=== PATIENT | male | born 1940 | race Caucasian/White ===

== ENCOUNTER 2018-10-31 14:00 | Inpatient (IN) ==
--- NOTE | 2018-10-31 14:19 | XRay Report ---
XR chest 1V portable CLINICAL HISTORY: Chest Pain dyspnea COMPARISON STUDY: No previous studies for comparison. FINDINGS: The bones soft tissues and hemidiaphragms are normal. The cardiomediastinal silhouette is n ormal. The lungs are clear. The pulmonary vasculature is normal. Healing and/or healed fractures of t he right seventh eighth ninth and 10th ribs. No evidence of pneumothorax. Lungs are clear. IMPRESSION: No acute process. Several old right-sided rib fractures. The above report was generated using voice recognition software. It may contain grammatical, syntax or spelling errors. Electronically signed by: Leo Laws M.D. 10/31/2018 2:18 PM
[2018-10-31 14:32] LABS: Basophils # (auto) 0.03 K/uL (0-0.2); Basophils % (auto) 0.2 %; Eosinophils # (auto) 0.15 K/uL (0-0.5); Eosinophils % (auto) 1.2 %; Hematocrit (blood only) 43.1 % (42-52); Hemoglobin 15.3 g/dL (14.0-18.0); Immature Granulocytes # (auto) 0.05 K/uL (0.00-0.02); Immature Granulocytes % (auto) 0.4 %; Lymphocytes # (auto) 1.43 K/uL (1.2-3.4); Lymphocytes % (auto) 11.6 %; Mean Corpuscular Hgb Conc 35.5 g/dL (32-36); Mean Corpuscular Volume 83.7 fL (80-100); Mean Platelet Volume 9.5 fL (7.4-10.4); Monocytes # (auto) 0.74 K/uL (0.11-0.59); Neutrophils # (auto) 9.89 K/uL (1.4-6.5); Neutrophils % (auto) 80.6 %; Platelet Count 199 K/uL (130-400); RDW Coefficient of Variation 12.3 % (11.5-14.5); RDW Standard Deviation 37.4 fL (36.4-46.3); Red Blood Count 5.15 M/uL (4.7-6.1); White Blood Count 12.29 K/uL (4.8-10.8)
[2018-10-31 14:46] LABS: Partial Thromboplastin Ratio 0.8; Partial Thromboplastin Time 21.8 Seconds (21.0-31.0)
[2018-10-31 15:00] LABS: Alanine Aminotransferase 30 U/L (12-78); Albumin Globulin Ratio 1.3 (0.9-2); Albumin Level 4.4 gm/dl (3.4-5.0); Aspartate Aminotransferase 18 U/L (15-37); BUN Creatinine Ratio 14.5 (10-20); Bilirubin,Total 0.5 mg/dl (0.2-1); Blood Urea Nitrogen 21 mg/dl (7-18); Calcium 9.2 mg/dl (8.5-10.1); Carbon Dioxide 25 mmol/L (21-32); Chloride 106 mmol/L (98-107); Creatinine Clr Calc Pharmacy 45.7 ml/min; Est GFR (African American) 53.8; Est GFR (Non-African American) 46.4; Globulin 3.4 gm/dl (2.5-4.0); Glucose 243 mg/dl (70-99); Potassium 5.1 mmol/L (3.5-5.1); Sodium 138 mmol/L (136-145); Total Protein 7.8 gm/dl (6.4-8.2)
[2018-10-31 15:03] LABS: Alkaline Phosphatase 87 U/L (45-117); Troponin I < 0.015 ng/ml (0-0.045)
[2018-10-31] MEDS ORDERED: SODIUM CHLORIDE 0.9% 1000ML 1,000 ML IV ONE (15:23)
[2018-10-31] MEDS ORDERED: SODIUM CHLORIDE 0.9% 500 ML IV ONE (18:45)
[2018-10-31] MEDS ORDERED: Heparin IV Standard *NO* Bolus IV STA (18:46)
[2018-10-31] MEDS ORDERED: Heparin Adult STANDARD Wt-Based Dextrose 5% 25,000 units/500 mL IV SCH (19:00)
[2018-10-31] MEDS ORDERED: ACETAMINOPHEN 325 MG TAB PO PRN (20:05)
--- NOTE | 2018-10-31 20:30 | History & Physical Report ---
Date of Service October 31, 2018 Assessment & Plan (1) Non-STEMI (non-ST elevated myocardial infarction): Presented with chest pain 4 episodes in last 2 months with history of NE and cardiac stent placement 14 years ago EKG unremarkable but troponin was elevated to 1.9 Likely has non-ST elevation NE Will get serial cardiac enzymes and EKG Heparin was restarted and continued his aspirin and statin Appreciate cardiology input Possible cardiac cath in the morning Present on Admission?: Yes (2) Chest pain: Has had 4 episodes in last 2 months Most recent all stayed longer Management as above Present on Admission?: Yes (3) Diabetes: Has type 2 diabetes on oral medications including what metformin We will hold his oral medications Place him on sliding scale coverage Check hemoglobin A1c (4) Hypertension: Seems to be controlled Continue current medications (5) CHRISTIANO (acute kidney injury): Creatinine was read to be high at 1.45 with increasing BUN of 21 Likely has CHRISTIANO secondary to dehydration We will give him cautious amount of intravenous fluid Monitor PRP DVT prophylaxis Intravenous heparin CODE STATUS Full code History of Present Illness Chief Complaint: Chest pain while playing golf today Primary Care Provider: Everton Trinidad MD He is a 78 years old male with significant past medical history of CAD status post NE and stent placement about 14 years ago in [facility], diabetes type 2, hypertension and hyperlipidemia has been complaining of occasional chest pain for the last 2 months. The pain he complains comes with exertion and lasts for few minutes or so and relieved with sublingual nitro he denies any other symptoms associated with it. He has had 4 episode of chest pain in last 2 months and the latest one was while playing golf today and that lasted for longer than other time. He did complain to have some regurgitation with the pain but did not have any shortness of breath and/or palpitation associated with it. No dizziness and the pain did not radiate to the neck and/or to the left upper extremity. In the ER he did not have any more pain and initial EKG and troponin are unremarkable. His repeat troponin came back positive at 1.9 and from that point he was seen by the snow fence erector and is advised for admission for possible cardiac cath tomorrow. He was started with intravenous heparin and continued his aspirin and statin. Allergies Allergy/AdvReac Type Severity Reaction Status Date / Time No Known Allergies Allergy Unverified 10/31/18 15:16 Home Medications Home Medications Medication Instructions Recorded Confirmed Type aspirin [Aspirin Low Dose] 81 mg PO DAILY 10/31/18 10/31/18 History atorvastatin 80 mg PO DAILY 10/31/18 10/31/18 History cyanocobalamin (vitamin B-12) 500 mcg PO DAILY 10/31/18 10/31/18 History docusate sodium 100 mg PO BID 10/31/18 10/31/18 History ezetimibe 10 mg PO DAILY 10/31/18 10/31/18 History glimepiride 2 mg PO QDL 10/31/18 10/31/18 History glimepiride 4 mg PO BIDM 10/31/18 10/31/18 History linagliptin [Tradjenta] 5 mg PO DAILY 10/31/18 10/31/18 History lisinopril 2.5 mg PO DAILY 10/31/18 10/31/18 History metformin 100 mg PO BID 10/31/18 10/31/18 History nebivolol [Bystolic] 2.5 mg PO DAILY 10/31/18 10/31/18 History Past Med/Surg History Medical History Diabetes Hypertension Surgical History H/O heart artery stent Family History Other Family history non-contributory Social History Feels Safe at Home: Yes Smoking Status: Unknown if ever smoked Review of Systems Review of Systems: All systems reviewed & are unremarkable except as noted in HPI & below Respiratory: no cough and no dyspnea Cardiovascular: no chest pain Physical Exam Physical Exam: No apparent distress at rest Constitutional: well developed and well nourished; no acute distress and not ill appearing Eyes: PERRL, conjunctivae normal, anicteric sclerae ENMT: external ear and nose normal, oropharynx normal Neck: trachea midline, no thyromegaly Respiratory: normal respiratory effort; no respiratory distress Auscultation: lungs clear to auscultation bilaterally Cardiovascular: Rate/Rhythm: regular rate and regular rhythm Heart Sounds: no murmur Gastrointestinal (Abdomen): Inspection/Auscultation: abdomen normal to inspection Percussion/Palpation: abdomen soft; abdomen nontender Musculoskeletal: No acute arthritis in any joints Neurologic: patellar DTR's 2+ bilat, sensation intact Psychiatric: A+Ox3, euthymic affect Lymphatic: no cervical or axillary lymphadenopathy Results & Data Vital Signs (Past 12 Hours) Vital Signs Temp Pulse Pulse Resp BP BP Pulse Ox 10/31/18 18:03 67 18 105/98 98 10/31/18 15:55 73 18 119/61 95 10/31/18 14:12 36.7 C 67 67 18 120/70 100 Laboratory Results Short CBC 10/31/18 Range/Units 14:25 WBC 12.29 H (4.8-10.8) K/uL Hgb 15.3 (14.0-18.0) g/dL Hct 43.1 (42-52) % Plt Count 199 (130-400) K/uL BMP 10/31/18 14:25 Sodium 138 Potassium 5.1 Chloride 106 Carbon Dioxide 25 BUN 21 H Creatinine 1.45 H Glucose 243 H Calcium 9.2 Cardiac Enzymes 10/31/18 10/31/18 Range/Units 14:25 17:35 Troponin I < 0.015 1.960 H* (0-0.045) ng/ml Liver Function 10/31/18 Range/Units 14:25 Total Bilirubin 0.5 (0.2-1) mg/dl AST 18 (15-37) U/L ALT 30 (12-78) U/L Alkaline Phosphatase 87 (45-117) U/L Albumin 4.4 (3.4-5.0) gm/dl Medications Administered Current Inpatient Medications Acetaminophen (Tylenol) 650 mg PO Q4H PRN PRN Reason: Pain or Fever Stop: 11/30/18 20:04 Heparin Sodium/Dextrose (Heparin Sodium/Dextrose) 25,000 units in 500 mls @ 27 mls/hr IV .[id number] [facility]; Protocol Stop: 11/30/18 18:59 Last Admin: 10/31/18 19:03 Dose: 1,350 units/hr, 27 mls/hr Documented by: Sodium Chloride (Nss) 500 mls @ 125 mls/hr IV .Q4H [facility] Stop: 11/01/18 08:14 Code Status & VTE Plan Code Status Full code VTE Prophylaxis Plan VTE Prophylaxis will be ordered: Yes (1) Chest pain Chest pain type: unspecified Qualified Code(s): R07.9 - Chest pain, unspecified
[2018-10-31] MEDS ORDERED: DEXTROSE 50% 50 ML SYRINGE IV PRN (21:45)
[2018-10-31] MEDS ORDERED: CARBOHYDRATES FOR HYPOGLYCEMIA PO PRN (21:45)
[2018-10-31] MEDS ORDERED: GLUCAGON FOR INJ 1 MG VIAL IM PRN (21:45)
[2018-10-31] MEDS ORDERED: GLUCOSE 10 TABS/TUBE PO PRN (21:45)
[2018-10-31] MEDS ORDERED: GLUCOSE 40% GEL 15 GM TUBE PO PRN (21:45)
[2018-10-31] MEDS: SODIUM CHLORIDE 0.9% 500 ML IV SCH (22:15)
--- NOTE | 2018-10-31 22:23 | Emergency Department Note ---
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 The patient reports he was playing golf when he experienced chest pain and numbness in his arms. He states he thought it was the heat and sat down for 20 minutes. The patient notes he has taken nitro a few times before. He reports he has history of a LAD stent that was placed 14 years ago. The patient rates his pain as 4 at its worst. He denies smoking or drinking. The patient reports he takes medications for hypertension, diabetes, and cholesterol. He notes he has not recently had his heart checked. The patient was given 4 baby aspirin and nitro prior to arrival and his pain has not changed. Home Medications Home Medications Medication Instructions Recorded Confirmed Type aspirin [Aspirin Low Dose] 81 mg PO DAILY 10/31/18 10/31/18 History atorvastatin 80 mg PO DAILY 10/31/18 10/31/18 History cyanocobalamin (vitamin B-12) 500 mcg PO DAILY 10/31/18 10/31/18 History docusate sodium 100 mg PO BID 10/31/18 10/31/18 History ezetimibe 10 mg PO DAILY 10/31/18 10/31/18 History glimepiride 2 mg PO QDL 10/31/18 10/31/18 History glimepiride 4 mg PO BIDM 10/31/18 10/31/18 History linagliptin [Tradjenta] 5 mg PO DAILY 10/31/18 10/31/18 History lisinopril 2.5 mg PO DAILY 10/31/18 10/31/18 History metformin 100 mg PO BID 10/31/18 10/31/18 History nebivolol [Bystolic] 2.5 mg PO DAILY 10/31/18 10/31/18 History Allergies Allergy/AdvReac Type Severity Reaction Status Date / Time No Known Allergies Allergy Unverified 10/31/18 15:16 Past Med/Surg History Medical History Diabetes Hypertension Surgical History H/O heart artery stent Family History Other Family history non-contributory Social History Preferred Language: Solomon Islander Communication Ability: Effective 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 and A total of 10 systems reviewed and were otherwise negative Physical Exam Vital Signs Vital Signs - 24 hr 10/31/18 14:12 10/31/18 15:55 10/31/18 18:03 Temperature 36.7 C Temperature Source Oral Sepsis Recent Fever Within 48 Hours No Sepsis Action Taken by Nursing No Action Required Pulse Rate 67 Pulse Rate [Apical] 67 73 67 Respiratory Rate 18 18 18 Blood Pressure 120/70 Blood Pressure [Left Arm] 119/61 105/98 Blood Pressure Mean 86 Blood Pressure Mean [Left Arm] 80 100 Pulse Oximetry 100 95 98 Oxygen Delivery Method Room Air Room Air Room Air 10/31/18 20:00 Temperature Temperature Source Oral Sepsis Recent Fever Within 48 Hours Sepsis Action Taken by Nursing Pulse Rate Pulse Rate [Apical] 58 L Respiratory Rate 18 Blood Pressure Blood Pressure [Left Arm] 137/84 Blood Pressure Mean Blood Pressure Mean [Left Arm] 101 Pulse Oximetry 98 Oxygen Delivery Method Room Air GENERAL: Patient is awake, alert, and in no acute distress.Patient is resting comfortably and showing no signs of anxiety EYES: The conjunctivae are clear. The pupils are round and reactive. EARS, NOSE, MOUTH AND THROAT: The nose is without any evidence of any deformity. Mucous membranes are moist.Tongue is midline NECK: The neck is nontender and supple. RESPIRATORY: Normal respiratory effort is noted. There is no evidence of wheezing rhonchi or rales to auscultation. CARDIOVASCULAR: Regular rate and rhythm noted. There no murmurs rubs or gallops normal S1 normal S2 GASTROINTESTINAL: The abdomen is soft. Bowel sounds are present in all quad rants. Abdomen is nontender. MUSCULOSKELETAL/EXTREMITIES: There is no evidence of gross deformity. Full range of motion is noted in the hips and shoulders. SKIN: There is no obvious evidence of any rash. There are no petechiae, pallor or cyanosis noted. NEUROLOGIC: Patient is awake alert and oriented x3. Course 1407: The patient was evaluated in room C3. A complete history and physical exam was performed. 1604: I checked on the patient. 1833: I checked on the patient. 1850: I reviewed the patient's case with Dr. Hill, Interventional Cardiology. He recommends admitting the patient and he will evaluate him for catheter. 1920: I [facility] the [facility] Administered Medications Aspirin (Ecotrin Ectab) 81 mg PO DAILY [facility] Stop: 12/01/18 08:59 Last Admin: 11/02/18 07:55 Dose: 81 mg Documented by: [id number] Admin: 11/01/18 07:22 Dose: 81 mg Documented by: [id number] Atorvastatin Calcium (Lipitor) 80 mg PO DAILY [facility] Stop: 12/01/18 08:59 Last Admin: 11/02/18 07:56 Dose: 80 mg Documented by: [id number] Admin: 11/01/18 07:22 Dose: 80 mg Documented by: [id number] Cyanocobalamin (Vitamin B-12) 500 mcg PO DAILY [facility] Stop: 12/01/18 08:59 Last Admin: 11/02/18 07:56 Dose: 500 mcg Documented by: [id number] Admin: 11/01/18 07:22 Dose: 500 mcg Documented by: [id number] Docusate Sodium (Colace) 100 mg PO BID [facility] Stop: 11/30/18 21:24 Last Admin: 11/02/18 08:46 Dose: 100 mg Documented by: [id number] Admin: 11/01/18 20:40 Dose: 100 mg Documented by: [id number] Admin: 11/01/18 07:22 Dose: 100 mg Documented by: [id number] Admin: 10/31/18 22:28 Dose: 100 mg Documented by: [id number] Ezetimibe (Zetia) 10 mg PO DAILY [facility] Stop: 12/01/18 08:59 Last Admin: 11/02/18 07:56 Dose: 10 mg Documented by: [id number] Admin: 11/01/18 07:22 Dose: 10 mg Documented by: [id number] Insulin Aspart (Novolog Flexpen) 0 units SC ACHS [facility] Stop: 11/30/18 20:59 Last Admin: 11/02/18 08:49 Dose: 2 units Documented by: [id number] Cosigned by: [id number] Admin: 11/01/18 20:41 Dose: 4 units Documented by: [id number] Cosigned by: [id number] Admin: 11/01/18 16:57 Dose: 5 units Documented by: [id number] Cosigned by: [id number] Admin: 11/01/18 12:33 Dose: 4 units Documented by: [id number] Cosigned by: [id number] Admin: 11/01/18 07:30 Dose: Not Given Documented by: [id number] Cosigned by: [id number] Admin: 10/31/18 22:30 Dose: 7 units Documented by: [id number] Cosigned by: [id number] Lisinopril (Zestril) 2.5 mg PO DAILY [facility] Stop: 12/01/18 08:59 Last Admin: 11/02/18 07:56 Dose: 2.5 mg Documented by: [id number] Admin: 11/01/18 07:22 Dose: 2.5 mg Documented by: [id number] Nebivolol (Bystolic) 2.5 mg PO DAILY [facility] Stop: 12/01/18 08:59 Last Admin: 11/02/18 07:56 Dose: 2.5 mg Documented by: [id number] Admin: 11/01/18 07:22 Dose: 2.5 mg Documented by: [id number] Ticagrelor (Brilinta) 90 mg PO BID [facility] Stop: 12/01/18 20:59 Last Admin: 11/02/18 07:56 Dose: 90 mg Documented by: [id number] Admin: 11/01/18 20:40 Dose: 90 mg Documented by: [id number] Discontinued Medications Fentanyl Citrate (Fentanyl Citrate) Confirm Administered Dose 100 mcg .ROUTE .STK-MED ONE Stop: 11/01/18 09:29 Last Increment: 11/01/18 10:17 Dose: 25 mcg Documented by: [id number] Heparin Sodium (Porcine) (Heparin Iv Bolus (Crib Tender Use Only)) Confirm Administered Dose 10,000 units .ROUTE .STK-MED ONE Stop: 11/01/18 09:29 Last Admin: 11/01/18 10:18 Dose: Not Given Documented by: [id number] Heparin Sodium/Dextrose () 1 ea IV NOW STA Stop: 10/31/18 18:47 Last Admin: 10/31/18 19:05 Dose: 1 ea Documented by: [id number] Heparin Sodium/Sodium Chloride (Heparin/Nss 1000 Unit/500ml Flush Bag) Confirm Administered Dose 3,000 units IV .STK-MED ONE Stop: 11/01/18 09:29 Last Admin: 11/01/18 10:18 Dose: 3,000 units Documented by: [id number] Sodium Chloride (Nss 1000ml) 1,000 mls @ 999 mls/hr IV .Q1H1M ONE Stop: 10/31/18 16:23 Last Infusion: 10/31/18 16:52 Dose: 0 mls/hr Documented by: [id number] Admin: 10/31/18 15:58 Dose: 999 mls/hr Documented by: [id number] Sodium Chloride (Nss) 500 mls @ 999 mls/hr IV .Q31M ONE Stop: 10/31/18 19:15 Last Infusion: 10/31/18 19:39 Dose: 0 mls/hr Documented by: [id number] Admin: 10/31/18 19:05 Dose: 999 mls/hr Documented by: [id number] Heparin Sodium/Dextrose (Heparin Sodium/Dextrose) 25,000 units in 500 mls @ 0 mls/hr IV .Q0M [facility]; Protocol Stop: 11/30/18 18:59 Last Titration: 11/01/18 11:40 Dose: 0 units/hr, 0 mls/hr Documented by: [id number] Cosigned by: [id number] Titration: 11/01/18 09:19 Dose: 0 units/hr, 0 mls/hr Documented by: [id number] Cosigned by: [id number] Titration: 11/01/18 07:07 Dose: 1,350 units/hr, 27 mls/hr Documented by: [id number] Cosigned by: [id number] Titration: 11/01/18 02:04 Dose: 1,350 units/hr, 27 mls/hr Documented by: [id number] Cosigned by: [id number] Titration: 10/31/18 23:07 Dose: 1,350 units/hr, 27 mls/hr Documented by: [id number] Cosigned by: [id number] Admin: 10/31/18 19:03 Dose: 1,350 units/hr, 27 mls/hr Documented by: [id number] Cosigned by: [id number] Sodium Chloride (Nss) 500 mls @ 125 mls/hr IV .Q4H [facility] Stop: 11/01/18 08:14 Last Infusion: 11/01/18 09:20 Dose: 0 mls/hr Documented by: [id number] Admin: 11/01/18 05:01 Dose: 125 mls/hr Documented by: [id number] Infusion: 11/01/18 05:01 Dose: 125 mls/hr Documented by: [id number] Admin: 11/01/18 02:03 Dose: 125 mls/hr Documented by: [id number] Infusion: 11/01/18 02:03 Dose: 125 mls/hr Documented by: [id number] Admin: 10/31/18 22:15 Dose: 125 mls/hr Documented by: [id number] Sodium Chloride (Nss 1000ml) 1,000 mls @ 100 mls/hr IV .Q10H [facility] Stop: 11/01/18 16:44 Last Infusion: 11/01/18 17:03 Dose: 0 mls/hr Documented by: [id number] Admin: 11/01/18 12:32 Dose: 100 mls/hr Documented by: [id number] Midazolam HCl (Versed) Confirm Administered Dose 2 mg .ROUTE .STK-MED ONE Stop: 11/01/18 09:29 Last Increment: 11/01/18 10:18 Dose: 1 mg Documented by: [id number] Midazolam HCl (Versed) Confirm Administered Dose 2 mg .ROUTE .STK-MED ONE Stop: 11/01/18 10:55 Last Admin: 11/01/18 11:15 Dose: 1 mg Documented by: [id number] Nicardipine HCl (Cardene) Confirm Administered Dose 25 mg .ROUTE .STK-MED ONE Stop: 11/01/18 09:29 Last Admin: 11/01/18 10:17 Dose: 25 mg Documented by: [id number] Nitroglycerin/Dextrose (Nitroglycerin/D5w 100 Mcg/Ml 20ml Syringe) Confirm Administered Dose 2,000 mcg .ROUTE .STK-MED ONE Stop: 11/01/18 09:29 Last Admin: 11/01/18 10:18 Dose: 2,000 mcg Documented by: [id number] Perflutren Lipid Microsphere (Definity) 2 ml IV ONCE ONE Stop: 11/02/18 08:47 Last Admin: 11/02/18 08:47 Dose: 2 ml Documented by: [id number] Ticagrelor (Brilinta) Confirm Administered Dose 180 mg PO .STK-MED ONE Stop: 11/01/18 11:11 Last Admin: 11/01/18 11:15 Dose: 180 mg Documented by: [id number] Medical Decision Making Differential Diagnosis Differential diagnosis: Etiologies such as shingles, musculoskeletal pain, pericarditis, myocarditis, cardiac ischemia, pericardial tamponade, pneumonia, pneumothorax, pleural effusion, hemothorax, pleurisy, aortic pathology, pulmonary embolism, intra- abdominal process, as well as others were considered. Medical Records Attestation: I reviewed the patient's medical records. Home Medications Current Medication List: was personally reviewed by me Laboratory Data Attestation: I reviewed the patient's lab results. Result diagrams: 11/01/18 05:19 11/01/18 05:19 Lab Results 10/31/18 10/31/18 10/31/18 Range/Units 14:25 14:25 14:25 WBC 12.29 H (4.8-10.8) K/uL RBC 5.15 (4.7-6.1) M/uL Hgb 15.3 (14.0-18.0) g/dL Hct 43.1 (42-52) % MCV 83.7 (80-100) fL MCH 29.7 (25-34) pg MCHC 35.5 (32-36) g/dL RDW Std Deviation 37.4 (36.4-46.3) fL RDW Coeff of Jose Eduardo 12.3 (11.5-14.5) % Plt Count 199 (130-400) K/uL MPV 9.5 (7.4-10.4) fL Immature Gran % (Auto) 0.4 % Neut % (Auto) 80.6 % Lymph % (Auto) 11.6 % Mcmullen % (Auto) 6.0 % Eos % (Auto) 1.2 % Baso % (Auto) 0.2 % Immature Gran # (Auto) 0.05 H (0.00-0.02) K/uL Neut # (Auto) 9.89 H (1.4-6.5) K/uL Lymph # (Auto) 1.43 (1.2-3.4) K/uL Mcmullen # (Auto) 0.74 H (0.11-0.59) K/uL Eos # (Auto) 0.15 (0-0.5) K/uL Baso # (Auto) 0.03 (0-0.2) K/uL PT 10.0 (9.0-12.0) Seconds INR 1.0 (0.9-1.1) APTT 21.8 (21.0-31.0) Seconds PTT Ratio 0.8 Sodium 138 (136-145) mmol/L Potassium 5.1 (3.5-5.1) mmol/L Chloride 106 (98-107) mmol/L Carbon Dioxide 25 (21-32) mmol/L Anion Gap 7.0 (3-11) BUN 21 H (7-18) mg/dl Creatinine 1.45 H (0.6-1.4) mg/dl Est Cr Clr Drug Dosing 45.7 ml/min Est GFR ( Amer) 53.8 Est GFR (Non-Af Amer) 46.4 BUN/Creatinine Ratio 14.5 (10-20) Glucose 243 H (70-99) mg/dl Calcium 9.2 (8.5-10.1) mg/dl Total Bilirubin 0.5 (0.2-1) mg/dl AST 18 (15-37) U/L ALT 30 (12-78) U/L Alkaline Phosphatase 87 (45-117) U/L Troponin I < 0.015 (0-0.045) ng/ml Total Protein 7.8 (6.4-8.2) gm/dl Albumin 4.4 (3.4-5.0) gm/dl Globulin 3.4 (2.5-4.0) gm/dl Albumin/Globulin Ratio 1.3 (0.9-2) Lipase 475 H (73-393) U/L 10/31/18 Range/Units 17:35 WBC (4.8-10.8) K/uL RBC (4.7-6.1) M/uL Hgb (14.0-18.0) g/dL Hct (42-52) % MCV (80-100) fL MCH (25-34) pg MCHC (32-36) g/dL RDW Std Deviation (36.4-46.3) fL RDW Coeff of Jose Eduardo (11.5-14.5) % Plt Count (130-400) K/uL MPV (7.4-10.4) fL Immature Gran % (Auto) % Neut % (Auto) % Lymph % (Auto) % Mcmullen % (Auto) % Eos % (Auto) % Baso % (Auto) % Immature Gran # (Auto) (0.00-0.02) K/uL Neut # (Auto) (1.4-6.5) K/uL Lymph # (Auto) (1.2-3.4) K/uL Mcmullen # (Auto) (0.11-0.59) K/uL Eos # (Auto) (0-0.5) K/uL Baso # (Auto) (0-0.2) K/uL PT (9.0-12.0) Seconds INR (0.9-1.1) APTT (21.0-31.0) Seconds PTT Ratio Sodium (136-145) mmol/L Potassium (3.5-5.1) mmol/L Chloride (98-107) mmol/L Carbon Dioxide (21-32) mmol/L Anion Gap (3-11) BUN (7-18) mg/dl Creatinine (0.6-1.4) mg/dl Est Cr Clr Drug Dosing ml/min Est GFR ( Amer) Est GFR (Non-Af Amer) BUN/Creatinine Ratio (10-20) Glucose (70-99) mg/dl Calcium (8.5-10.1) mg/dl Total Bilirubin (0.2-1) mg/dl AST (15-37) U/L ALT (12-78) U/L Alkaline Phosphatase (45-117) U/L Troponin I 1.960 H* (0-0.045) ng/ml Total Protein (6.4-8.2) gm/dl Albumin (3.4-5.0) gm/dl Globulin (2.5-4.0) gm/dl Albumin/Globulin Ratio (0.9-2) Lipase (73-393) U/L Imaging Data Radiologist's Impression: Radiology results as stated below per my review and the radiologist's interpretation: XR chest 1V portable CLINICAL HISTORY: Chest Pain dyspnea COMPARISON STUDY: No previous studies for comparison. FINDINGS: The bones soft tissues and hemidiaphragms are normal. The cardiomediastinal silhouette is normal. The lungs are clear. The pulmonary vasculature is normal. Healing and/or healed fractures of the right seventh eighth ninth and 10th ribs. No evidence of pneumothorax. Lungs are clear. IMPRESSION: No acute process. Several old right-sided rib fractures. The above report was generated using voice recognition software. It may contain grammatical, syntax or spelling errors. Electronically signed by: Leo Laws M.D. 10/31/2018 2:18 PM ECG Data Attestation: I personally reviewed and interpreted this ECG as follows: Indication: chest pain Rate (beats per minute): 64 Rhythm: normal sinus Findings: + other (Inferior and low lateral ST abnormalities noted); no ectopy Comparison ECG Date: no prior available Additional Comments: Repeat ECG: Normal sinus at 69 beats per minute. No ectopy. Resolution of previously ST segment abnormalities. Blood Pressure Blood Pressure Findings: Normal blood pressure Blood Pressure Disposition: did not require urgent referral MDM Narrative The patient is a 78-year-old male who presented to the emergency department for an evaluation of chest discomfort. The patient describes discomfort across the upper shoulders into both arms. He was playing golf at the time. He has had similar episodes in the past. He took nitroglycerin without relief. He was transported to the emergency department via ALS. He was treated with aspirin. Upon arrival to the emergency department the patient's symptoms were still present. His initial EKG showed inferior and lateral ST abnormalities. His initial troponin was negative. The patient became pain-free in the emergency department. Repeat EKG showed normalization of the previously noted ST segment abnormality's. His second troponin at 3 hours was elevated. The patient was started on heparin. I discussed the patient's laboratory and radiographic studies with him. I also discussed his case with the on-call [facility] hospitalist group as well as the on-call medical recruiter. They have all agreed to evaluate the patient in the emergency department for further management and disposition. Impression & Plan Non-STEMI (non-ST elevated myocardial infarction), Chest pain, Abnormal ECG, Elevated troponin Critical Care Time Critical Care Time: Yes Total Critical Care Time: 60 I have personally spent greater than 60 minutes of critical care time in the direct management of this patient. This includes bedside care, interpretation of diagnostic studies, and testing, discussion with consultants, patient, and family members, and other required patient management activities. This 60 minutes is in excess of all separately billable procedures. Discharge Plan Visit Data *Final* Discharge Date/Time: 10/31/18 20:40 Chief Complaint: Chest Pain ED Provider: Malick Cadena Discharge Problem: Non-STEMI (non-ST elevated myocardial infarction), Chest pain, Abnormal ECG, Elevated troponin Patient Disposition: Admitted As Inpatient Discharge Instructions Interventions: ED Discharge Assessment Last Done: 10/31/18 20:40 Discharge Problem: Chest pain Qualifiers: Chest pain type: unspecified Qualified Code(s): R07.9 - Chest pain, unspecified The scribe's documentation has been prepared under my direction and personally reviewed by me in its entirety. I confirm that the note above accurately reflects all work, treatment, procedures, and medical decision making performed by me.
[2018-10-31] MEDS: DOCUSATE SODIUM 100 MG CAP PO SCH (22:28)
[2018-10-31] MEDS: INSULIN ASPART 100 UNITS/ML 3 ML PEN SC SCH (22:30)
--- NOTE | 2018-10-31 23:03 | Cardiology Consultation ---
Date of Consultation October 31, 2018 Assessment & Plan (1) Non-STEMI (non-ST elevated myocardial infarction): 2. History of coronary artery disease post LA and prior LAD stent 14 years ago 3. Hypertension 4. Type 2 diabetes 5. Dyslipidemia Patient here with acute onset of chest pain radiating down his arms reminiscent of prior LA. Pain associated with subtle EKG changes elevated troponin consistent with acute coronary syndrome. At present patient is chest pain-free, hemodynamically and electrically stable and no indication for emergent cardiac catheterization. Do feel further risk stratification is warranted and recommend early invasive approach with planned cardiac catheterization tomorrow morning. Discussed risks, benefits, alternatives of procedure with patient and his family is willing to proceed. Procedure be performed via right radial artery. Please keep n.p.o. past midnight. Patient to be started on heparin infusion. Continue aspirin, statin, beta- hilario. Please contact overnight if recurrent pain. Thank you for allowing us to participate in the care of this patient. Please contact with any questions. History of Present Illness Attending Physician: Tony Brooks MD History of Present Illness Mr. Rae is a very pleasant 78-year-old man with a history of hypertension, dyslipidemia, type 2 diabetes and coronary artery disease post prior PCI in [place] approximately 15 years ago here with intermittent substernal chest pain and elevated troponin consistent with NSTEMI. Patient's chest pain began while he was playing golf today. Described as chest pressure radiating down his arms. Pain reminiscent of prior pain he had with LA and stent placement to his LAD. He endorses several similar episodes over the past 6 months which of all seem to occur with exertion. Chest pain relieved with nitroglycerin. Initial EKG upon arrival showed sinus rhythm with incomplete right bundle branch block and inferior T wave inversions less prominent on repeat EKG when chest pain resolved. Initial troponin negative, subsequent troponin 1.96. With elevated troponin interventional cardiology consulted. Patient seen in the emergency department at which time chest pain- free, hemodynamically and electrically stable. Allergies Allergy/AdvReac Type Severity Reaction Status Date / Time No Known Allergies Allergy Unverified 10/31/18 15:16 Home Medications Home Medications Medication Instructions Recorded Confirmed Type aspirin [Aspirin Low Dose] 81 mg PO DAILY 10/31/18 10/31/18 History atorvastatin 80 mg PO DAILY 10/31/18 10/31/18 History cyanocobalamin (vitamin B-12) 500 mcg PO DAILY 10/31/18 10/31/18 History docusate sodium 100 mg PO BID 10/31/18 10/31/18 History ezetimibe 10 mg PO DAILY 10/31/18 10/31/18 History glimepiride 2 mg PO QDL 10/31/18 10/31/18 History glimepiride 4 mg PO BIDM 10/31/18 10/31/18 History linagliptin [Tradjenta] 5 mg PO DAILY 10/31/18 10/31/18 History lisinopril 2.5 mg PO DAILY 10/31/18 10/31/18 History metformin 100 mg PO BID 10/31/18 10/31/18 History nebivolol [Bystolic] 2.5 mg PO DAILY 10/31/18 10/31/18 History Patient History Medical History Diabetes Hypertension Surgical History H/O heart artery stent Family History Other Family history non-contributory Social History Preferred Language: Icelandic Communication Ability: Effective Chicken Hanger Required: No Beliefs That Will Affect Care: None Current Living Situation: Spouse and Foster Care Current Living Situation Comment: Venita Ponce [address] [facility] Other Information That Helps Us Care for You: Yes Feels Safe at Home: Yes Safety Concerns: Feels Safe At This Time Smoking Status: Unknown if ever smoked Hx Alcohol Use: No Hx Substance Use: No Review of Systems Review of Systems: All systems reviewed & are unremarkable except as noted in HPI & below Physical Exam Physical Exam: General: Comfortable, no acute distress Eyes: Sclerae anicteric, extraocular movements intact HENT: Oropharynx clear mucous membranes moist Neck: Normal carotid upstrokes, no bruits. No JVD. Lungs: Clear to auscultation bilaterally, no rhonchi or wheezes Cardiac: Regular rate and rhythm, no murmurs, rubs or gallops. Vascular: 2+ radial, DP and PT pulses. No varicosities. Abdomen: Soft, nontender, nondistended, positive bowel sounds. Extremities: Well perfused, no peripheral edema Skin: No rashes or lesions. Neuro: Nonfocal Psych: Alert orient x3, normal affect and mood Results & Data Vital Signs (Past 12 Hours) Vital Signs Temp Pulse Pulse Resp BP BP Pulse Ox 10/31/18 21:00 36.6 C 62 18 135/81 95 10/31/18 20:00 58 L 18 137/84 98 10/31/18 18:03 67 18 105/98 98 10/31/18 15:55 73 18 119/61 95 10/31/18 14:12 36.7 C 67 67 18 120/70 100
[2018-11-01 01:56] LABS: Partial Thromboplastin Ratio 2.1; Partial Thromboplastin Time 56.1 Seconds (21.0-31.0)
[2018-11-01] MEDS: SODIUM CHLORIDE 0.9% 500 ML IV SCH ×2 (02:03→05:01)
[2018-11-01 05:30] LABS: Basophils # (auto) 0.02 K/uL (0-0.2); Basophils % (auto) 0.2 %; Eosinophils # (auto) 0.27 K/uL (0-0.5); Eosinophils % (auto) 3.1 %; Hematocrit (blood only) 39.2 % (42-52); Hemoglobin 13.9 g/dL (14.0-18.0); Immature Granulocytes # (auto) 0.02 K/uL (0.00-0.02); Immature Granulocytes % (auto) 0.2 %; Lymphocytes % (auto) 23.1 %; Mean Corpuscular Hgb Conc 35.5 g/dL (32-36); Mean Platelet Volume 9.3 fL (7.4-10.4); Monocytes # (auto) 0.76 K/uL (0.11-0.59); Monocytes % (auto) 8.8 %; Neutrophils # (auto) 5.58 K/uL (1.4-6.5); Neutrophils % (auto) 64.6 %; Platelet Count 166 K/uL (130-400); RDW Coefficient of Variation 12.5 % (11.5-14.5); RDW Standard Deviation 38.5 fL (36.4-46.3); Red Blood Count 4.61 M/uL (4.7-6.1); White Blood Count 8.65 K/uL (4.8-10.8)
[2018-11-01 06:03] LABS: Estimated Average Glucose 180 mg/dl; Hemoglobin A1C 7.9 % (4.5-5.6)
[2018-11-01 07:10] LABS: BUN Creatinine Ratio 15.7 (10-20); Calcium 8.3 mg/dl (8.5-10.1); Creatinine Clr Calc Pharmacy 64.4 ml/min; Est GFR (African American) 80.5; Est GFR (Non-African American) 69.4; Potassium 3.8 mmol/L (3.5-5.1)
[2018-11-01] MEDS: NEBIVOLOL HCL 5 MG TAB PO SCH (07:22)
[2018-11-01] MEDS: CYANOCOBALAMIN 500 MCG TABLET (VITAMIN B-12) PO SCH (07:22)
[2018-11-01] MEDS: DOCUSATE SODIUM 100 MG CAP PO SCH ×2 (07:22→20:40)
[2018-11-01] MEDS: EZETIMIBE 10 MG TABLET PO SCH (07:22)
[2018-11-01] MEDS: LISINOPRIL 2.5 MG TAB PO SCH (07:22)
[2018-11-01] MEDS: ATORVASTATIN 40 MG TAB PO SCH (07:22)
[2018-11-01] MEDS: ASPIRIN 81 MG ECTAB PO SCH (07:22)
[2018-11-01] MEDS: INSULIN ASPART 100 UNITS/ML 3 ML PEN SC SCH ×4 (07:30→20:41)
[2018-11-01] MEDS ORDERED: HEPARIN (PORCINE) 1000 UNIT/ML 10 ML (CATH LAB USE ONLY) ONE (09:28)
[2018-11-01] MEDS ORDERED: fentaNYL citrate 100 MCG/2 ML VIAL ONE (09:28)
[2018-11-01] MEDS ORDERED: NiCARDipine HCL INJ 2.5 MG/ML 10 ML AMP ONE (09:28)
[2018-11-01] MEDS ORDERED: NITROGLYCERIN/D5W 100MCG/ML 20ML SYR ONE (09:28)
[2018-11-01] MEDS ORDERED: MIDAZOLAM HCL 1 MG/ML 2ML VIAL ONE ×2 (09:28→10:54)
[2018-11-01] MEDS ORDERED: TICAGRELOR 90 MG TAB PO ONE (11:10)
--- NOTE | 2018-11-01 11:20 | Pre Anesthesia Assessment ---
Date of Service November 01, 2018 Pre Sedation Assessment Vital Signs Temp Pulse Pulse Pulse Resp BP BP 11/01/18 07:20 36.8 C 76 20 11/01/18 04:00 36.7 C 59 L 18 132/78 10/31/18 23:44 59 L 10/31/18 23:29 36.6 C 66 19 136/61 10/31/18 21:09 74 10/31/18 21:00 36.6 C 62 18 135/81 10/31/18 20:00 58 L 18 137/84 10/31/18 18:03 67 18 105/98 10/31/18 15:55 73 18 119/61 10/31/18 14:12 36.7 C 67 67 18 120/70 BP Pulse Ox 11/01/18 07:20 126/67 99 11/01/18 04:00 97 10/31/18 23:44 10/31/18 23:29 97 10/31/18 21:09 10/31/18 21:00 95 10/31/18 20:00 98 10/31/18 18:03 98 10/31/18 15:55 95 10/31/18 14:12 100 Cardiovascular RRR, no murmur, no edema Respiratory normal respiratory effort, lungs clear to auscultation Pre-Sedation Airway Assessment Smoking Status: Unknown if ever smoked Hx Sleep Apnea: No Hx Difficult Intubation: No Short, Thick Neck: No Thyromental Distance: > or= 3.5 Finger Breadths Oral Cavity: + WNL Mallampati Class: III Procedure Planning Contraindications for Sedation: none Current Medications Reviewed: Yes Notes The planned sedation has been discussed with the patient. Informed Consent was obtained. I have identified the patient, determined the appropriateness of sedation and have assessed the patient immediately prior to the procedure. All medicine(s) and interventions are by my order.
--- NOTE | 2018-11-01 11:21 | Post Anesthesia Assessment ---
Date of Service November 01, 2018 Post Sedation Assessment Vital Signs Temp Pulse Pulse Pulse Resp BP BP 11/01/18 07:20 36.8 C 76 20 11/01/18 04:00 36.7 C 59 L 18 132/78 10/31/18 23:44 59 L 10/31/18 23:29 36.6 C 66 19 136/61 10/31/18 21:09 74 10/31/18 21:00 36.6 C 62 18 135/81 10/31/18 20:00 58 L 18 137/84 10/31/18 18:03 67 18 105/98 10/31/18 15:55 73 18 119/61 10/31/18 14:12 36.7 C 67 67 18 120/70 BP Pulse Ox 11/01/18 07:20 126/67 99 11/01/18 04:00 97 10/31/18 23:44 10/31/18 23:29 97 10/31/18 21:09 10/31/18 21:00 95 10/31/18 20:00 98 10/31/18 18:03 98 10/31/18 15:55 95 10/31/18 14:12 100 Recovery Score Activity: Moves 4 extremities Respiration: Deep Breath/Cough Circulation: +/-20% PreAnes Value Consciousness: Fully Awake Oxygen Saturation: O2 needed for >90% Post Sedation Plan On clinical assessment, the patient appears to have tolerated the sedation without complications. Patient is recovering as anticipated. Patient will continue to be monitored by nursing and may be discharged when sedation discharge criteria are met per below protocol. Upon Completions of procedure and additional 15 minutes continue every 5 minute vital signs and the P.A.R. score; then discharge to a Phase I or Fast Track to Phase II per the following guidelines: * Discharge Patient to appropriate Phase II area if PAR is 8 or greater or return to pre- procedure baseline. The post - procedure orders will be as directed. * If PAR score is less than 8 or not return to pre-procedure baseline then patient will follow Phase I monitoring till PAR is reached for Phase II. The Phase I may be done in procedure room or may call to secure a Phase I area. * If naloxone or flumazenil are used for reversal, hold in Phase I for continued monitoring from when last reversal dose was given for a minimum of 60 minutes or longer pending the nurse and/or physician discretion of patient condition before discharge to Phase II. Please call the Sedation Physician to re-evaluate and complete post-note for discharge to Phase II area. Do NOT discharge from procedure sedation or Phase 1 until post- sedation evaluation note is complete by procedure /sedation MD Sedation Discharge Instructions to be given to the patient at discharge to home.
--- NOTE | 2018-11-01 11:33 | Cardiac Catheterization ---
Cardiac Cath Procedure Full Procedure Date November 01, 2018 Pre-Procedure Diagnosis Pre-Procedure Diagnosis: Non STEMI AUC Score AUC Score: 8 Post-Procedure Diagnosis Post-Procedure Diagnosis: Severe CAD, Successful PCI and Normal Intracardiac Pressures Procedure(s) Performed Procedure(s) Performed: Coronary Angiography, Left Heart Cath and Drug Eluting Stent Aluminum Siding Mechanic Aquiles Hill MD International Manager(s) Myranda Estimated Blood Loss Estimated Blood Loss: 15 Medication(s) Medication(s): Fentanyl, Heparin, Lidocaine 1%, Nicardipine, Nitroglycerin and Versed Medication(s): Ticagrelor Summary of Findings Indication: High risk NSTEMI Access: 6 Fr right radial artery Catheters: [place], JL 3.5; AR-1 guide Findings: LM -luminal irregularities LAD -moderate caliber vessel, moderate epicardial calcification, 20% ostial stenosis, patent mid segment stent with 50% in-stent restenosis, 70% stenosis in small distal vessel prior to apex. Second diagonal at takeoff of prior stent with 50 to 60% ostial stenosis Circumflex -moderate caliber vessel, patent mid segment stent without significant restenosis. Left PLB with diffuse 30 to 40% disease, focal 50 to 60% mid segment disease. Small OM 2 with 90% focal ostial stenosis. RCA -calcified, dominant, large caliber vessel, 80% stenosis at the ostium of right PDA LVEDP -8 -- PCI -- Antithrombotic therapy: Heparin, ticagrelor Procedure: RCA cannulated with AR-1 guide Material Handling Supervisor 50 wire passed across PDA lesion into distal vessel Pro-water wire placed into right PLB Proximal PDA lesion predilated with 2.0 compliant balloon Dilated lesion stented with 2.25 x 18 mm Sonny drug-eluting stent Stent post-dilated proximally with 2.5 noncompliant balloon IC vasodilators administered for spasm Questionable edge dissection at distal aspect of stent covered with a second CHOLO 2.25 x 8 mm Sonny. Stent postdilated with stent balloon. Post procedure MEME 3 flow, stent well expanded with minimal residual stenosis and no apparent cardiac complications. Arterial Closure: TR band Summary: 1. Multi-vessel coronary artery disease -80% ostial right PDA Patent mid LAD stent with 50% in-stent restenosis, small apical LAD with 70% focal stenosis Widely patent mid circumflex stent. Very small OM 2 with 90% ostial stenosis. Left PLB with 60-70% focal stenosis 2. Normal intracardiac filling pressure 3. Successful PCI of proximal right PDA with 2 overlapping drug-eluting stents (2.25 x 18, 2.25 x 8 [place]; postdilated proximally with 2.5 NC). 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 Cardiac Status Clinical evaluation leading to the procedure CAD Presenation: Non STEMI Anginal Classification: CCS IV Heart Failure: No Cardiogenic Shock within 24 Hours: No Cardiac Arrest within 24 Hours: No Imaging Studies Past 6 Months: Yes Stress Studies Past 6 Months: No Diagnostic Physicians Name: Aquiles Hill MD Status: Elective Closure Device Percutaneous Entry Location: Radial Closure Device: Radial Band Recommendations: PCI without planned CABG PCI Indication: PCI for high risk Non-DMITRI Lesion Segment Name: Proximal right PDA Culprit Artery: Yes Stenosis Prior to Rx (%): 80 Chronic Total Occlusion: No IVUS: No FFR: No Pre-Procedure MEME Flow: 2 Previously Treated Lesion: No Lesion Complexity: Non-High/Non-C Lesion Length (mm): 15 Thrombus Present: No Bifurcation Lesion: Yes Guidewire Across Lesion: Stenosis Post-Procedure (%): 0 Post-Procedure MEME Flow: 3 Devices(s) Deployed: Yes Yes Intraprocedure Events Significant Disection: No Perforation: No
--- NOTE | 2018-11-01 11:37 | Cardiology Progress Note ---
Date of Service November 01, 2018 Assessment & Plan (1) Non-STEMI (non-ST elevated myocardial infarction): 2. History of coronary artery disease post [place] and prior LAD stent 14 years ago 3. Hypertension 4. Type 2 diabetes 5. Dyslipidemia Patient post PCI with CHOLO to severe ostial right PDA lesion. Patient tolerated procedure well and is chest pain-free. Going forward: Continue DAPT with aspirin, ticagrelor for 1 year Can discontinue heparin Titrate beta-hilario as BP allows. Continue home statin, Zetia Echo pending If stable overnight likely home tomorrow. Subjective No recurrent chest pain overnight. Post PCI with drug-eluting stent to proximal right PDA this morning. Post procedure feeling well. TR band in place. No complaints. Review of Systems Review of Systems: All systems reviewed & are unremarkable except as noted in HPI & below Physical Exam Physical Exam: General: Comfortable, no acute distress HEENT: Sclerae anicteric, mucous membranes moist Lungs: Clear to auscultation bilaterally, no rhonchi or wheezes Cardiac: Regular rate and rhythm, no murmurs. No JVD. Abdomen: Soft, nontender, nondistended, positive bowel sounds. Extremities: Warm, well perfused, no edema. TR band in place. No apparent access site comp occasions. Skin: No rashes or lesions. Neuro: Nonfocal Psych: Alert orient x3, normal affect and mood Results & Data Vital Signs (Past 12 Hours) Vital Signs Temp Pulse Pulse Pulse Resp BP BP 11/01/18 07:20 36.8 C 76 20 126/67 11/01/18 04:00 36.7 C 59 L 18 132/78 10/31/18 23:44 59 L Pulse Ox 11/01/18 07:20 99 11/01/18 04:00 97 10/31/18 23:44
[2018-11-01] MEDS ORDERED: SODIUM CHLORIDE 0.9% 1000ML 1,000 ML IV SCH (11:45)
--- NOTE | 2018-11-01 16:48 | Hospitalist Progress Note ---
Date of Service November 01, 2018 Assessment & Plan (1) Non-STEMI (non-ST elevated myocardial infarction): (2) Chest pain: Presented with chest pain while playing golf History of [place] and cardiac stent placement 14 years ago Troponin on admission initially 1.9, then peak to 4.4 Heparin drip was started S/P cardiac cath done this morning by Dr. Hill showed: 80% ostial right PDA, Patent mid LAD stent with 50% in-stent restenosis, small apical LAD with 70% focal stenosis Widely patent mid circumflex stent. Very small OM 2 with 90% ostial stenosis. Left PLB with 60-70% focal stenosis Successful PCI of proximal right PDA with 2 overlapping drug-eluting stents Heparin discontinued Continue dual-antiplatelet therapy with aspirin and ticagrelor for at least one year Continue statin, Zetia and beta hilario Will refer to cardiac rehab ECHO pending (3) Diabetes: Recent Hba1c 7.9 on 11/01/18 Oral DM on hold while in the hospital Continue insulin sliding scale Monitor BS (4) Hypertension: BP controlled Continue current medications (5) CHRISTIANO (acute kidney injury): Creatinine on admission 1.45 w Likely has CHRISTIANO secondary to dehydration Received IVF Creatinine improves to 1.03 Avoid Nephrotoxic agents Check BMP in am DVT prophylaxis Heparin drip d/c Pt ambulates CODE STATUS Full code Disposition Discharge in tomorrow Subjective Pt was seen and examined Lying in bed with no distress Pt said that he feels much better He denies any chest discomfort Physical Exam Physical Exam: General- No acute distress Head- atraumatic Eyes- PERRL, EOMI, ENT- oropharynx clear Neck- supple, no JVD Lungs- clear to auscultation Heart- regular rhythm; no murmur Abdomen- normal bowel sounds, soft, nontender Extremities- no calf tenderness Neuro- alert, oriented x 3; PERRL, EOMI; no facial palsy; no dysarthria Skin- warm & dry Results & Data Vital Signs (Past 12 Hours) Vital Signs Temp Pulse Pulse Resp BP BP Pulse Ox 11/01/18 16:13 36.7 C 63 19 127/60 98 11/01/18 14:18 61 16 119/75 99 11/01/18 13:18 59 L 16 124/81 100 11/01/18 12:48 68 16 131/77 99 11/01/18 12:18 59 L 16 129/78 99 11/01/18 12:03 58 L 16 127/76 96 11/01/18 11:48 60 16 116/76 97 11/01/18 11:33 36.7 C 56 L 16 112/73 98 11/01/18 07:20 36.8 C 76 20 126/67 99 (1) Chest pain Chest pain type: unspecified Qualified Code(s): R07.9 - Chest pain, unspecified
[2018-11-01] MEDS: TICAGRELOR 90 MG TAB PO SCH (20:40)
[2018-11-02] MEDS: ASPIRIN 81 MG ECTAB PO SCH (07:55)
[2018-11-02] MEDS: NEBIVOLOL HCL 5 MG TAB PO SCH (07:56)
[2018-11-02] MEDS: EZETIMIBE 10 MG TABLET PO SCH (07:56)
[2018-11-02] MEDS: ATORVASTATIN 40 MG TAB PO SCH (07:56)
[2018-11-02] MEDS: TICAGRELOR 90 MG TAB PO SCH (07:56)
[2018-11-02] MEDS: CYANOCOBALAMIN 500 MCG TABLET (VITAMIN B-12) PO SCH (07:56)
[2018-11-02] MEDS: LISINOPRIL 2.5 MG TAB PO SCH (07:56)
[2018-11-02 08:21] LABS: Partial Thromboplastin Ratio 0.9; Partial Thromboplastin Time 25.1 Seconds (21.0-31.0)
[2018-11-02] MEDS: DOCUSATE SODIUM 100 MG CAP PO SCH (08:46)
[2018-11-02] MEDS ORDERED: PERFLUTREN LIPID MICROSPHERE (DEFINITY) IV ONE (08:46)
[2018-11-02] MEDS: INSULIN ASPART 100 UNITS/ML 3 ML PEN SC SCH ×2 (08:49→12:32)
--- NOTE | 2018-11-02 11:31 | Cardiology Progress Note ---
Date of Service November 02, 2018 Assessment & Plan (1) Non-STEMI (non-ST elevated myocardial infarction): 2. History of coronary artery disease post [place] and prior LAD stent 14 years ago 3. Hypertension 4. Type 2 diabetes 5. Dyslipidemia Patient post PCI with CHOLO to severe ostial right PDA lesion. No recurrent chest pain. Hemodynamically and electrically stable. No access site complications Echo reviewednormal LV function no significant valvular pathology. Okay for discharge today from a cardiac standpoint. Plan to continue DAPT with aspirin, ticagrelor at least for the first month then potentially transition to clopidogrel No change to current hypertensives. Plan to further titrate antianginal therapy as necessary as an outpatient. Continue statin/Zetia Follow-up with cardiology in 2 to 3 weeks. Subjective Feeling well. No recurrent chest pain. Up walking halls this morning. Telemetry reviewedno events. Review of Systems Review of Systems: All systems reviewed & are unremarkable except as noted in HPI & below Physical Exam Physical Exam: General: Comfortable, no acute distress HEENT: Sclerae anicteric, mucous membranes moist Lungs: Clear to auscultation bilaterally, no rhonchi or wheezes Cardiac: Regular rate and rhythm, no murmurs. No JVD. Abdomen: Soft, nontender, nondistended, positive bowel sounds. Extremities: Warm, well perfused, no edema. Right radial artery access site with no ecchymosis, hematoma. Distal pulse and sensation intact. Skin: No rashes or lesions. Neuro: Nonfocal Psych: Alert orient x3, normal affect and mood Results & Data Vital Signs (Past 12 Hours) Vital Signs Temp Pulse Pulse Resp BP Pulse Ox 11/02/18 08:14 36.8 C 75 20 134/81 99 11/02/18 04:00 36.9 C 67 18 107/65 97 11/02/18 00:00 64 11/01/18 23:46 37.0 C 65 17 151/76 H 98
--- NOTE | 2018-11-02 12:37 | Hospitalist Progress Note ---
Date of Service November 02, 2018 Assessment & Plan (1) Non-STEMI (non-ST elevated myocardial infarction): (2) Chest pain: Presented with chest pain while playing golf History of [place] and cardiac stent placement 14 years ago Troponin on admission initially 1.9, then peak to 4.4 Heparin drip was started S/P cardiac cath done on 11/[address] Hill showed: 80% ostial right PDA, Patent mid LAD stent with 50% in-stent restenosis, small apical LAD with 70% focal stenosis Widely patent mid circumflex stent. Very small OM 2 with 90% ostial stenosis. Left PLB with 60-70% focal stenosis Successful PCI of proximal right PDA with 2 overlapping drug-eluting stents Heparin discontinued Continue dual-antiplatelet therapy with aspirin and ticagrelor for at least one year Continue statin and will refer to cardiac rehab Follow up with cardiology in 2 to 3 weeks (3) Diabetes: Recent Hba1c 7.9 on 11/01/18 Oral DM on hold while in the hospital Continue insulin sliding scale Monitor BS (4) Hypertension: BP controlled Continue current medications Continue monitor BP (5) CHRISTIANO (acute kidney injury): Creatinine on admission 1.45 w Likely has CHRISTIANO secondary to dehydration Received IVF Creatinine improves to 1.04 Avoid Nephrotoxic agents Stable DVT prophylaxis Heparin drip d/c Pt ambulates CODE STATUS Full code Disposition Discharge in today Follow up with [facility] cardiology Dr. Hill in 2 to 3 weeks Follow up with your primary care provider Dr. Trinidad within 1 week Subjective Pt was seen and examined Walking in his room, ready to be discharged today Pt said that he feels fine He said that he slept last night He already got her clothes on and ready to go Denies any chest pain, palpitation, dizziness and SOB Physical Exam Physical Exam: General- No acute distress Head- atraumatic Eyes- PERRL, EOMI, ENT- oropharynx clear Neck- supple, no JVD Lungs- clear to auscultation Heart- regular rhythm; no murmur Abdomen- normal bowel sounds, soft, nontender Extremities- no calf tenderness, No right wrist hematoma Neuro- alert, oriented x 3; PERRL, EOMI; no facial palsy; no dysarthria Skin- warm & dry Results & Data Vital Signs (Past 12 Hours) Vital Signs Temp Pulse Pulse Resp BP Pulse Ox 11/02/18 08:14 36.8 C 75 20 134/81 99 11/02/18 08:00 55 L 11/02/18 04:00 36.9 C 67 18 107/65 97 (1) Chest pain Chest pain type: unspecified Qualified Code(s): R07.9 - Chest pain, unspecified
--- NOTE | 2018-11-15 08:31 | Discharge Summary ---
Date of Service November 02, 2018 Admission HPI Per Admitting Provider He is a 78 years old male with significant past medical history of CAD status post NC and stent placement about 14 years ago in [facility], diabetes type 2, hypertension and hyperlipidemia has been complaining of occasional chest pain for the last 2 months. The pain he complains comes with exertion and lasts for few minutes or so and relieved with sublingual nitro he denies any other symptoms associated with it. He has had 4 episode of chest pain in last 2 months and the latest one was while playing golf today and that lasted for longer than other time. He did complain to have some regurgitation with the pain but did not have any shortness of breath and/or palpitation associated with it. No dizziness and the pain did not radiate to the neck and/or to the left upper extremity. In the ER he did not have any more pain and initial EKG and troponin are unremarkable. His repeat troponin came back positive at 1.9 and from that point he was seen by the wafer polishing lead worker and is advised for admission for possible cardiac cath tomorrow. He was started with intravenous heparin and continued his aspirin and statin. Admission Exam Per Admitting Provider Physical Exam: No apparent distress at rest Constitutional: well developed and well nourished; no acute distress and not ill appearing Eyes: PERRL, conjunctivae normal, anicteric sclerae ENMT: external ear and nose normal, oropharynx normal Neck: trachea midline, no thyromegaly Respiratory: no respiratory distress Auscultation: lungs clear to aus cultation bilaterally Cardiovascular: regular rate and regular rhythm, no murmur Gastrointestinal abdomen normal to inspection Percussion/Palpation: abdomen soft; abdomen nontender Musculoskeletal: No acute arthritis in any joints Neurologic: patellar DTR's 2+ bilat, sensation intact Psychiatric: A+Ox3, euthymic affect Lymphatic: no cervical or axillary lymphadenopathy Principal Diagnosis Non-STEMI (non-ST elevated myocardial infarction) Chest pain Diabetes Hypertension CHRISTIANO (acute kidney injury) Discharge Exam General- No acute distress Head- atraumatic Eyes- PERRL, EOMI, ENT- oropharynx clear Neck- supple, no JVD Lungs- clear to auscultation Heart- regular rhythm; no murmur Abdomen- normal bowel sounds, soft, nontender Extremities- no calf tenderness, No right wrist hematoma Neuro- alert, oriented x 3; PERRL, EOMI; no facial palsy; no dysarthria Skin- warm & dry Discharge Data Allergies Allergy/AdvReac Type Severity Reaction Status Date / Time No Known Allergies Allergy Unverified 10/31/18 15:16 Consultations 10/31/18 19:16 ED Decision to Admit Stat 10/31/18 20:11 Consult Cardiology Routine 11/01/18 11:34 Consult Cardiac Rehabilitation Routine Procedures Performed Operation Date: 11/01/18 09:30 Actual Procedures p Cath, Left with Cors and Vent - Nehemiah Hill MD s Cineradiography w/Routine Exam - Nehemiah Hill MD s Drug Eluting Stent SGl Vessel - Nehemiah Hill MD Ordered Studies 11/01/18 09:10 CL Cath Imgs for PACS use only Routine XR chest 1V portable CLINICAL HISTORY: Chest Pain dyspnea COMPARISON STUDY: No previous studies for comparison. FINDINGS: The bones soft tissues and hemidiaphragms are normal. The cardiomediastinal silhouette is normal. The lungs are clear. The pulmonary vasculature is normal. Healing and/or healed fractures of the right seventh eighth ninth and 10th ribs. No evidence of pneumothorax. Lungs are clear. IMPRESSION: No acute process. Several old right-sided rib fractures. The above report was generated using voice recognition software. It may contain grammatical, syntax or spelling errors. Electronically signed by: Leo Laws M.D. 10/31/2018 2:18 PM Dictated: 10/31/18 1416 Transcribed: 10/31/18 1416 Hospital Course (1) Non-STEMI (non-ST elevated myocardial infarction): Presented with chest pain while playing golf History of NC and cardiac stent placement 14 years ago Troponin on admission initially 1.9, then peak to 4.4 Heparin drip was started S/P cardiac cath done this morning by Dr. Hill showed: 80% ostial right PDA, Patent mid LAD stent with 50% in-stent restenosis, small apical LAD with 70% focal stenosis Widely patent mid circumflex stent. Very small OM 2 with 90% ostial stenosis. Left PLB with 60-70% focal stenosis Successful PCI of proximal right PDA with 2 overlapping drug-eluting stents Heparin discontinued Continue dual-antiplatelet therapy with aspirin and ticagrelor for at least one year Continue statin and will refer to cardiac rehab (2) Chest pain: Presented with chest pain while playing golf History of NC and cardiac stent placement 14 years ago Troponin on admission initially 1.9, then peak to 4.4 Heparin drip was started S/P cardiac cath done on 11/[address] Hill showed: 80% ostial right PDA, Patent mid LAD stent with 50% in-stent restenosis, small apical LAD with 70% focal stenosis Widely patent mid circumflex stent. Very small OM 2 with 90% ostial stenosis. Left PLB with 60-70% focal stenosis Successful PCI of proximal right PDA with 2 overlapping drug-eluting stents Heparin discontinued Continue dual-antiplatelet therapy with aspirin and ticagrelor for at least one year Continue statin and will refer to cardiac rehab Follow up with cardiology in 2 to 3 weeks (3) Diabetes: Recent Hba1c 7.9 on 11/01/18 Oral DM on hold while in the hospital Continue insulin sliding scale Monitor BS (4) Hypertension: BP controlled Continue current medications Continue monitor BP (5) CHRISTIANO (acute kidney injury): Creatinine on admission 1.45 w Likely has CHRISTIANO secondary to dehydration Received IVF Creatinine improves to 1.04 Avoid Nephrotoxic agents Stable DVT prophylaxis Heparin drip d/c Pt ambulates CODE STATUS Full code Disposition Discharge in today Follow up with [facility] cardi[facility] Dr. Hill in 2 to 3 weeks Follow up with your primary care provider Dr. Trinidad within 1 week Total Time Total Time Spent Total Time Spent (In Minutes): 35 minutes Total Time Includes: Examination of the Patient, Discharge Planning, Medication Reconciliation, Communication With Other Providers and Other Discharge Plan Discharge Items Patient Disposition: Home - Self-Care Reason For Visit: CHEST PAIN,NSTEMI Discharge Diagnosis: Non-STEMI (non-ST elevated myocardial infarction) Chest pain Diabetes Hypertension CHRISTIANO (acute kidney injury) Discharge Goals: Decrease discomfort, Improve disease control, Increase independence and Improve nutritional status Activity: As commented below Non-emergency contact: Primary Care Provider and Card Assembler Call non-emergency contact if: you have any medication questions, your wound has increased redness and your wound has increased drainage Follow-up/Referrals: Everton Trinidad MD [Primary Care Provider] - Diet: Carb Consistent or DM2 and Heart Healthy Addtl Provider Instructions: Follow up with [facility] cardiology Dr. Hill in 2 to 3 weeks (Office will call you for the appointment) Follow up with your primary care provider Dr. Trinidad within 1 week Referral to cardiac rehab (Your physician or your cardiology will arrange for that) Continue dual-antiplatelet therapy with aspirin 81mg and ticagrelor for at least one year (potentially transition to plavix if cost becomes an issue) Please monitor for abnormal bleeding while on aspirin and Ticagrelor such as blood in your stool or urine Please notify your physician or seek medical attention if you develop any abnormal bleeding Avoid any NSAIDs such as (motrin, aleve, naproxen, advil, Ibuprofen, ...) due to increase risk of bleeding while on aspirin and ticagrelor Monitor your blood pressure Follow a healthy diabetes diet and limited concentrated sweet intake Please resume Metformin tomorrow Keep the area for the cardiac cath clean and dry to avoid any infection Do not use creams, lotions or ointment on the wound site Do not take a bath, tub soak, go in a Jacuzzi, or swim in a pool or nam for one week after the procedure. Do not participate in strenuous activities for 5 days after the procedure. Gradually increase your activities until you reach your normal activity level within 3 days after the procedure. Avoid heavy lifting (more than 10 pounds) and pushing or pulling heavy objects for the first 5 days after the procedure. Prescriptions: New Brilinta 90 mg Tablet 90 mg PO BID 30 Days Qty: 60 RF: 1 Continued atorvastatin 80 mg tablet 80 mg PO DAILY RF: 0 aspirin [Aspirin Low Dose] 81 mg Tablet,Delayed Release (Dr/Ec) 81 mg PO DAILY RF: 0 cyanocobalamin (vitamin B-12) 500 mcg tablet 500 mcg PO DAILY RF: 0 metformin 1,000 mg tablet 1,000 mg PO BID RF: 0 glimepiride 4 mg tablet 4 mg PO BIDM RF: 0 glimepiride 4 mg tablet 2 mg PO QDL RF: 0 docusate sodium 100 mg capsule 100 mg PO BID RF: 0 lisinopril 2.5 mg tablet 2.5 mg PO DAILY RF: 0 ezetimibe 10 mg tablet 10 mg PO DAILY RF: 0 Bystolic 2.5 mg tablet 2.5 mg PO DAILY RF: 0 Tradjenta 5 mg tablet 5 mg PO DAILY RF: 0 Stand-Alone Forms: Call Back Authorization, [facility] Discharge Orders: Discharge Order (Routine); Ordered 11/02/18 Ordered By: Daphney Goncalves Admission Data Admit Date/Time: 10/31/18 20:05 Attending Provider: Daphney Goncalves Admit Provider: Tony Brooks Primary Care Provider: Evreton Trinidad Other Providers: Tony Brooks ; Nehemiah Hill Service: Telemetry Other Interventions: Discharge Summary Assessment (RN) Last Done: 11/02/18 13:06 DC Date/Time DO NOT enter until pt leaves facility: 11/02/18 13:30
== END 2018-11-02 13:30 | disposition home or self-care (01) | DRG 229 ==
LOC: ED 14:00 → SUATTDRO 20:05 → 2S 20:05
DX: E11.9 Type 2 diabetes mellitus without complications; Z79.82 Long term (current) use of aspirin; I10 Essential (primary) hypertension; Z79.84 Long term (current) use of oral hypoglycemic drugs; I21.4 Non-ST elevation (NSTEMI) myocardial infarction; I25.2 Old myocardial infarction; N17.9 Acute kidney failure, unspecified